=== PATIENT | female | born 1980 | race Caucasian/White ===

== ENCOUNTER 2017-09-07 18:14 | Emergency (ER) | payer BC ==
[~2017-09-07] VITALS: Ht 157.5 cm; Wt 96.8 kg
[2017-09-07 18:23] VITALS: BP 125/81; PULSE 124; RESP 16; TEMP 99.6; O2SAT 96
[2017-09-07 20:30] VITALS: BP 127/80; PULSE 114; RESP 16; O2SAT 99
[2017-09-07] MEDS ORDERED: AVIATAB PO (20:30)
[2017-09-07] MEDS ORDERED: SODIUM CHLOR 0.9% 1000 ML INJ 1,000 ML IV ONE (20:30)
[2017-09-07] MEDS ORDERED: SODIUM CHLORIDE 0.9% FLUSH 10 ML FLUSH IV FLUSH PRN (20:30)
[2017-09-07] MEDS ORDERED: ONDANSETRON HCL 4 MG/2 ML VIAL IV PUSH ONE (20:30)
--- NOTE | 2017-09-07 20:31 | PD ---
HPI Chief Complaint: GI Complaint Time Seen by Provider: 20:28 Travel History International Travel<30 days: No Contact w/Intl Traveler<30days: No Traveled to known affect area: No History of Present Illness HPI 37-year-old female patient presents to the ER today with 2 days history of nausea, vomiting, abdominal cramping and diarrhea. She states this started yesterday afternoon, she states this started after she ate a carotid for several hours before. She states that her friend who had eaten was there with her had gotten sick today also. She denies any fevers or any other issues. She states that she had vomited once or twice today. She has had multiple episodes of diarrhea. Modifying Factors: None Associated Signs & Symptoms: Nausea, vomiting, diarrhea Risk Factors: Sick contact [facility] Past Medical History ?: Not LMP: 08/25/17 Social History Tobacco Use: No Allergies-Medications (Allergen,Severity, Reaction): Coded Allergies: No Known Allergies (Verified Allergy, Mild, 09/07/17) Reported Meds & Prescriptions Reported Meds & Active Scripts Active Reported Aviane (Levonorgestrel-Ethinyl Estradiol) 0.1-20 Mg-Mcg Tab 1 Tab PO DAILY Review of Systems Except as stated in HPI: all other systems reviewed are Neg Physical Exam Narrative GENERAL: Well-developed young female patient currently in mild distress. Awake and oriented 3. SKIN: Focused skin assessment warm/dry. HEAD: Atraumatic. Normocephalic. EYES: Pupils equal and round. No scleral icterus. No injection or drainage. ENT: No nasal bleeding or discharge. Mucous membranes pink and moist. NECK: Trachea midline. No JVD. CARDIOVASCULAR: Regular rate and rhythm. No murmur appreciated. RESPIRATORY: No accessory muscle use. Clear to auscultation. Breath sounds equal bilaterally. GASTROINTESTINAL: Abdomen soft, mild periumbilical tenderness without guarding or rebound, nondistended. Hepatic and splenic margins not palpable. MUSCULOSKELETAL: No obvious deformities. No clubbing. No cyanosis. No edema. NEUROLOGICAL: Awake and alert. No obvious cranial nerve deficits. Motor grossly within normal limits. Normal speech. PSYCHIATRIC: Appropriate mood and affect; insight and judgment normal. Data Data Last Documented VS Vital Signs Date Time Temp Pulse Resp B/P (MAP) Pulse Ox O2 Delivery O2 Flow Rate FiO2 09/07/17 22:50 110 16 124/69 (87) 99 Room Air 09/07/17 18:23 99.6 Orders Orders Complete Blood Count With Diff (09/07/17 20:28) Comprehensive Metabolic Panel (09/07/17 20:28) Lipase (09/07/17 20:28) Urinalysis - C+S If Indicated (09/07/17 20:28) Iv Access Insert/Monitor (09/07/17 20:28) Ecg Monitoring (09/07/17 20:28) Oximetry (09/07/17 20:28) Sodium Chloride 0.9% Flush (Ns Flush) (09/07/17 20:30) Ed Urine Pregnancytest Poc (09/07/17 20:28) Sodium Chlor 0.9% 1000 Ml Inj (Ns 1000 M (09/07/17 20:30) Ondansetron Inj (Zofran Inj) (09/07/17 20:30) Ct Abd/Pel W Iv Contrast(Rout) (09/07/17 21:17) Iohexol 350 Inj (Omnipaque 350 Inj) (09/07/17 22:30) Ed Discharge Order (09/07/17 22:58) Labs Laboratory Tests Test 09/07/17 19:37 09/07/17 20:40 Urine Color YELLOW Urine Turbidity CLOUDY Urine pH 6.0 Urine Specific Benjamin GREATER/EQUAL 1.030 Urine Protein TRACE mg/dL Urine Glucose (UA) NEG mg/dL Urine Ketones 15 mg/dL Urine Occult Blood NEG Urine Nitrite NEG Urine Bilirubin NEG Urine Urobilinogen 0.2 MG/DL Urine Leukocyte Esterase NEG Urine RBC 0-2 /hpf Urine WBC 0-2 /hpf Urine Squamous Epithelial Cells 0-5 /hpf Urine Amorphous Sediment LARGE Urine Bacteria NONE /hpf Microscopic Urinalysis Comment CULT NOT INDICATED White Blood Count 12.0 TH/MM3 Red Blood Count 5.58 MIL/MM3 Hemoglobin 15.6 GM/DL Hematocrit 45.8 % Mean Corpuscular Volume 82.2 FL Mean Corpuscular Hemoglobin 27.9 PG Mean Corpuscular Hemoglobin Concent 34.0 % Red Cell Distribution Width 13.0 % Platelet Count 310 TH/MM3 Mean Platelet Volume 8.3 FL Neutrophils (%) (Auto) 81.4 % Lymphocytes (%) (Auto) 9.0 % Monocytes (%) (Auto) 5.9 % Eosinophils (%) (Auto) 0.0 % Basophils (%) (Auto) 3.7 % Neutrophils # (Auto) 9.8 TH/MM3 Lymphocytes # (Auto) 1.1 TH/MM3 Monocytes # (Auto) 0.7 TH/MM3 Eosinophils # (Auto) 0.0 TH/MM3 Basophils # (Auto) 0.4 TH/MM3 CBC Comment DIFF FINAL Differential Comment Blood Urea Nitrogen 15 MG/DL Creatinine 0.88 MG/DL Random Glucose 115 MG/DL Total Protein 8.1 GM/DL Albumin 3.8 GM/DL Calcium Level 8.6 MG/DL Alkaline Phosphatase 63 U/L Aspartate Amino Transf (AST/SGOT) 12 U/L Alanine Aminotransferase (ALT/SGPT) 22 U/L Total Bilirubin 0.4 MG/DL Sodium Level 138 MEQ/L Potassium Level 3.2 MEQ/L Chloride Level 105 MEQ/L Carbon Dioxide Level 22.9 MEQ/L Anion Gap 10 MEQ/L Estimat Glomerular Filtration Rate 73 ML/MIN Lipase 76 U/L MDM Medical Decision Making Medical Screen Exam Complete: Yes Emergency Medical Condition: Yes Medical Record Reviewed: Yes Interpretation(s) Laboratory Tests Test 09/07/17 19:37 09/07/17 20:40 Urine Turbidity CLOUDY (CLEAR) Urine Ketones 15 mg/dL (NEG) White Blood Count 12.0 TH/MM3 (4.0-11.0) Red Blood Count 5.58 MIL/MM3 (4.00-5.30) Hemoglobin 15.6 GM/DL (11.6-15.3) Neutrophils (%) (Auto) 81.4 % (16.0-70.0) Basophils (%) (Auto) 3.7 % (0.0-2.0) Neutrophils # (Auto) 9.8 TH/MM3 (1.8-7.7) Basophils # (Auto) 0.4 TH/MM3 (0-0.2) Random Glucose 115 MG/DL (74-106) Aspartate Amino Transf (AST/SGOT) 12 U/L (15-37) Potassium Level 3.2 MEQ/L (3.5-5.1) Estimat Glomerular Filtration Rate 73 ML/MIN (>89) Last 24 hours Impressions Abdomen/Pelvis CT 09/07/17 2754 Signed Impressions: Service Date/Time: September 22:24 - CONCLUSION: 5.7 x 4.3 cm uterine fundal mass consistent with probable fibroid. Otherwise unremarkable CT of the abdomen and pelvis. Fransico Dwyer MD Differential Diagnosis Nausea, vomiting, diarrhea: Gastroenteritis versus food poisoning versus dehydration versus metabolic issues versus diverticulitis Narrative Course Lab work shows mild leukocytosis. There was not significant metabolic issues. CAT scan was ordered for further evaluation and did not show any signs of acute processes. She does have an incidental finding of a uterine fibroid. I do not believe that this is related to the current symptoms. Patient was given IV fluids and Zofran in the ER with improvement in nausea and vomiting and she was able to drink fluids in the ER. At this point, my plan would be to release her with further symptomatic relief for nausea and vomiting and follow-up as needed with primary care doctor. Return for worsening in symptoms as needed. The plan has been discussed with her and she states understanding. Diagnosis Primary Impression: Nausea vomiting and diarrhea Med/Other Pt SpecificInfo: Prescription(s) given Scripts Loperamide (Imodium A-D) 2 Mg Capsule 2 MG PO DIRECTED Y for DIARRHEA, #12 CAP 0 Refills One capsule after each loose stool. Not to exceed 8 tablets per day. Prov: Stephany Andrews MD 09/07/17 Ondansetron Odt (Zofran Odt) 4 Mg Tab 4 MG SL Q6HR Y for Nausea/Vomiting, #7 TAB 0 Refills Prov: Stephany Andrews MD 09/07/17 Disposition: 01 DISCHARGE HOME Condition: Stable Stephany Andrews MD Sep 07, 2017 20:31
[2017-09-07 20:37] LABS: BLOOD, URINE NEG (NEG); GLUCOSE,URINE NEG (NEG); KETONE, URINE 15 mg/dL (NEG); NITRITE,URINE NEG (NEG); URINE COLOR YELLOW (YELLW/STRAW); URINE LEUKOCYTE ESTERASE NEG (NEG)
[2017-09-07 20:42] LABS: BILIRUBIN, URINE NEG (NEG)
[2017-09-07 20:44] LABS: AMORPHOUS SEDIMENT, URINE LARGE; RBC, URINE 0-2 /hpf (0-3); SQUAMOUS EPITHELIAL CELL URINE 0-5 /hpf (0-5); WBC, URINE 0-2 /hpf (0-5)
[2017-09-07 20:48] LABS: AUTOMATED NEUTROPHIL # 9.8 TH/MM3 (1.8-7.7); BASOPHIL # 0.4 TH/MM3 (0-0.2); BASOPHIL % 3.7 % (0.0-2.0); HEMATOCRIT 45.8 % (35.0-46.0); HEMOGLOBIN 15.6 GM/DL (11.6-15.3); LYMPHOCYTE # 1.1 TH/MM3 (1.0-4.8); MEAN CELL VOLUME 82.2 FL (80.0-100.0); MEAN CORPUSCULAR HEMOGLOBIN 27.9 PG (27.0-34.0); MEAN PLATELET VOLUME 8.3 FL (7.0-11.0); MONO % 5.9 % (0.0-8.0); MONOCYTE # 0.7 TH/MM3 (0-0.9); NEUT % 81.4 % (16.0-70.0); PLATELET COUNT 310 TH/MM3 (150-450); RED BLOOD COUNT 5.58 MIL/MM3 (4.00-5.30)
[2017-09-07 21:01] LABS: CHLORIDE 105 MEQ/L (98-107); SODIUM (NA) 138 MEQ/L (136-145)
[2017-09-07 21:05] LABS: ALBUMIN 3.8 GM/DL (3.4-5.0); BICARBONATE 22.9 MEQ/L (21.0-32.0); BLOOD UREA NITROGEN 15 MG/DL (7-18); CALCIUM 8.6 MG/DL (8.5-10.1); GLUCOSE,RANDOM 115 MG/DL (74-106)
[2017-09-07 21:08] LABS: ALT (GPT) 22 U/L (10-53); AST (GOT) 12 U/L (15-37); CREATININE 0.88 MG/DL (0.50-1.00); GLOMERULAR FILTRATION RATE 73 ML/MIN (>89)
[2017-09-07 21:10] LABS: TOTAL BILIRUBIN ADULT 0.4 MG/DL (0.2-1.0); TOTAL PROTEIN 8.1 GM/DL (6.4-8.2)
[2017-09-07 21:11] LABS: ALKALINE PHOSPHATASE 63 U/L (45-117)
[2017-09-07 21:30] VITALS: BP 119/75; PULSE 112; RESP 16; O2SAT 99
[2017-09-07] MEDS ORDERED: IOHEXOL 350 MG/ML 10 ML VIAL (for RAD DIAG) IVCONTRAST ONE (22:30)
[2017-09-07 22:50] VITALS: BP 124/69; PULSE 110; RESP 16; O2SAT 99
--- NOTE | 2017-09-07 22:52 | RADRPT ---
EXAM DATE/TIME: 09/07/2017 22:24 [facility] COMPARISON: No previous studies available for comparison. INDICATIONS : Nausea, vomiting, and diarrhea since last night. IV CONTRAST: 96 cc Omnipaque 350 (iohexol) IV ORAL CONTRAST: No oral contrast ingested. RADIATION DOSE: 21.46 CTDIvol (mGy) MEDICAL HISTORY : None SURGICAL HISTORY : Breast augmentation ENCOUNTER: Initial ACUITY: 1 day PAIN SCALE: 7/10 LOCATION: abdomen TECHNIQUE: Volumetric scanning of the abdomen and pelvis was performed. Using automated exposure control and ad justment of the mA and/or kV according to patient size, radiation dose was kept as low as reasonably achievable to obtain optimal diagnostic quality images. DICOM format image data is available electro nically for review and comparison. FINDINGS: LOWER LUNGS: The visualized lower lungs are clear. LIVER: Homogeneous density without lesion. There is no dilation of the biliary tree. No calcified gallston es. SPLEEN: Normal size without lesion. PANCREAS: Within normal limits. KIDNEYS: Normal in size and shape. There is no mass, stone or hydronephrosis. ADRENAL GLANDS: Within normal limits. VASCULAR: There is no aortic aneurysm. BOWEL/MESENTERY: The stomach, small bowel, and colon demonstrate no acute abnormality. There is no free intraperitone al air or fluid. ABDOMINAL WALL: Within normal limits. RETROPERITONEUM: There is no lymphadenopathy. BLADDER: No wall thickening or mass. REPRODUCTIVE: There is a uterine fundal mass measuring 4.3 x 5.7 cm consistent with probable fibroid. INGUINAL: There is no lymphadenopathy or hernia. MUSCULOSKELETAL: Within normal limits for patient age. CONCLUSION: 5.7 x 4.3 cm uterine fundal mass consistent with probable fibroid. Otherwise unremark able CT of the abdomen and pelvis. Fransico Dwyer MD on September 07, 2017 at 22:49 Board Certified Radiologist. This report was verified electronically.
[2017-09-07] MEDS ORDERED: LOPE-1 PO ×2 (23:01→23:13)
[2017-09-07] MEDS ORDERED: ZOFR4TAB3 SL ×2 (23:01→23:13)
[2017-09-07] MEDS ORDERED: POTASSIUM CHLORIDE 10 MEQ CONTROLLED RELEASE TAB PO ONE (23:15)
== END 2017-09-07 23:27 | disposition home or self-care (01) ==
LOC: PHED 18:14
DX: R11.2 Nausea with vomiting, unspecified (principal); R19.7 Diarrhea, unspecified
CPT/HCPCS: 74177; 80053; 81001; 83690; 84703; 85025; 96361; 96374; 99284; J2405; J7030; Q9967